=== PATIENT | male | born 1990 ===

== ENCOUNTER 2020-03-19 05:24 | Day surgery (SDC) | payer OTHER ==
[~2020-03-19 05:24] MED LIST: CEFAZOLIN 1 GM/D5W RTU 1 GM/50 ML RTUPB IV ONE; CEFAZOLIN 2 GM/D5W RTU 2 GM/50 ML RTUPB IV PRN; RINGERS SOLUTION,LACTATED 1,000 ML IV PRN
[2020-03-19] MEDS ORDERED: EPHEDRINE SULFATE INJ 50 MG/1 ML AMPULE ONE (06:44)
[2020-03-19] MEDS ORDERED: FENTANYL CITRATE INJ/PF 100 MCG/2 ML AMPUL ONE ×2 (06:44→09:43)
[2020-03-19] MEDS ORDERED: MIDAZOLAM 2 MG/2 ML INJ ONE (06:44)
[2020-03-19] MEDS ORDERED: PROPOFOL INJ 200 MG/20 ML VIAL IV ONE (06:45)
[2020-03-19] MEDS ORDERED: ROPIVACAINE HCL 0.5% INJ/PF (5 MG/1 ML) 30 ML SDV ONE (06:56)
--- NOTE | 2020-03-19 09:30 | Operative Report ---
Operative Report DATE OF SURGERY: 03/19/20 Operative Report: The patient was met in the preoperative holding area where the left upper extremity was marked. He was taken to the operative suite after a left upper extremity nerve block for postoperative pain was placed. The patient was placed supine on the operative table and anesthesia and preoperative antibiotics were administered. Left upper extremity was evaluated under anesthesia for signs of instability, there was anterior instability on exam. The patient was then positioned on the pegboard in the right lateral decubitus position taking care to pad all bony prominences. The left upper extremity was then prepped and draped in the usual sterile fashion and placed in a traction apparatus. The bony landmarks were palpated and marked on the skin. A surgical timeout was performed with the entire team. A standard posterior arthroscopy portal was created and the camera was inserted into the glenohumeral joint. Under needle localization at the rotator interval a portal was created just above the subscapularis tendon. A diagnostic arthroscopy was performed. The rotator cuff tendons were intact. The humeral head and glenoid cartilage was intact and without pathology. The superior labrum and biceps tendon were noted to have a type II SLAP tear with bicipital tendinitis noted. Using the arthroscopic scissors the biceps tendon was cut at its base and using the arthroscopic shaver and cautery the superior portion of the labrum was carefully debrided. Final pictures were taken. Next, the anterior portion of the labrum was found to be detached from the glenoid in the 3:00 to 5 o'clock position. Pictures were taken. The posterior labrum was found to be normal. Using a percutaneous kit for the Arthrex suture tack a long spinal needle was placed to the anterior portal adjacent to the anterior cannula. A nitinol wire was then placed down through the spinal needle and cannulated switching stick was placed down over the nitinol wire. Next a drill guide was placed over the cannulated switching stick and the cannulated switching stick was removed. The drill guide was placed in the 3:30 position and carefully drilled. A 3.5 mm Arthrex sutureTak was placed. Next using the lasso the wire was shuttled through the labral tissue and then using this wire the FiberWire suture was shuttled through the labrum. The FiberWire was loaded into the looped suture and pulled through the anchor and carefully tensioned under direct visualization. Taking care not to over tighten the labrum and to recreate the bumper I placed the drill guide directly on the 5 o'clock position, I then drilled a hole for another 3.5 mm sutureTak to act as a ripstop. Once the anchor was placed and then using the lasso shuttled the wire through the labral tissue and using the same technique as the previous anchor cinched down the labral tissue to the glenoid taking care not to over tension. Next, using the probe I confirmed adequate positioning of the anchors and stability of the repair. Final pictures were taken. Next, I turned my attention to the anterior aspect of the humerus where a 3 cm incision was made just under the inferior border of the pectoralis major. Using blunt dissection down to the anterior aspect of the humerus the long head of the biceps tendon was found and carefully removed. An Allis clamp was placed and using a whipstitch technique at the musculotendinous junction I placed 5 suture passes through the tendon measuring approximately 2 cm locking the final suture passed. The remaining portion of the biceps tendon was cut. I then loaded the sutures into the Arthrex unicortical button using a free needle one of the suture tails was then passed through the sutured portion of the biceps tendon. A snap was placed on the sutures and they were set aside. Next a Hohmann was placed under the deltoid and an [place] was used inferiorly. Using a curette the bone was curetted down in the bicipital groove to create a nice bleeding surface for the biceps tendon. Using a drill a hole was drilled at the most proximal aspect of the bicipital groove. The drill bit was removed and the button was placed and flipped. The biceps tendon was then tensioned and prior to tying confirmed appropriate tensioning. The sutures were then tied and cut. The wound was copiously irrigated. Using a 2-0 Monocryl the anterior deep tissue was closed. And the subcutaneous tissue was closed using a running 3-0 Monocryl. The portal sites were closed using a 3-0 Monocryl. Steri-Strips were applied and a sterile dressing was applied of 4 x 4's and Tegaderm. There were no complications during the procedure. There were some technical difficulties and a few pictures were not saved. In particular the final anchor placement after suture tails were cut and the rotator cuff pictures. The patient tolerated the procedure well. He was taken to the PACU in stable condition. Postop: 1) patient will follow up in 10 to 14 days for his first postop visit. 2) he is to begin physical therapy within 3 to 5 days of surgery for a [place] protocol for anterior labral repair and open subpectoral biceps tenodesis. PREOPERATIVE DIAGNOSIS: Left shoulder labral tear, SLAP, biceps tendonitis POSTOPERATIVE DIAGNOSIS: left shoulder 3-5 anterior labral tear with type 2 SLAP tear and biceps tendinitis OPERATION: Left shoulder arthroscopy with SLAP debridement, anterior labral repair and open subpectoral biceps tenodesis SURGEON: MONICA REYES ANESTHESIA: GA ESTIMATED BLOOD LOSS: 10 cc INTRAOPERATIVE FINDINGS: Please see dictation
--- NOTE | 2020-03-19 09:35 | Discharge Summary ---
Discharge Summary (SDC) - Discharge Final Diagnosis: Left shoulder anterior labral tear, SLAP tear and biceps tendinitis Date of Surgery: 03/19/20 Discharge Date: 03/19/20 Condition: Good Forms: ASU Anesthesia D/C Instruction, Discharge POC-Surgical Service Treatment or Instructions: Please see postoperative discharge instructions for a complete list. These were provided in the office Take pain medications as prescribed Maintain your sling at all times except doing pendulum exercises (3-5 times a day, for 30-50 revolutions) and except while doing physical therapy You may shower on postop day 3. You may take your dressing down but leave your Steri-Strips in place. Do not scrub your wounds while showering and do not submerge your wounds underwater. Referrals: MONICA REYES, [ACTIVE STAFF] - (PLEASE KEEP YOUR FOLLOW-UP APPOINTMENT. CARE YOUR SURGEON WITH QUESTIONS.) Discharge Diet: As Tolerated Respiratory Treatments at Home: Deep Breathing/Coughing Discharge Activity: Other - Please see postoperative instructions given to the patient in the office. Pendulum exercises 3-5 times a day until you begin physical therapy. Home Care Assistance: Provided by Family Report the Following to Your Physician Immediately: Shortness of Breath, Nausea, Vomiting, Increase in Pain, Fever over 101 Degrees, Drainage-Yellow, Drainage- Foul Smelling
[2020-03-19] MEDS ORDERED: DIPHENHYDRAMINE HCL 50 MG/ML VIAL IV PRN (09:38)
[2020-03-19] MEDS ORDERED: PROMETHAZINE HCL INJ 25 MG/1 ML VIAL IV PRN ×2 (09:38)
[2020-03-19] MEDS ORDERED: MEPERIDINE HCL/PF INJ 25 MG/1 ML DISP.SYRIN IV PRN (09:38)
[2020-03-19] MEDS ORDERED: ONDANSETRON HCL INJ/PF 4 MG/2 ML SDV IV PRN (09:38)
[2020-03-19] MEDS ORDERED: ONDANSETRON HCL INJ/PF 4 MG/2 ML SDV ONE ×2 (09:38→10:59)
[2020-03-19] MEDS ORDERED: FENTANYL CITRATE INJ/PF 100 MCG/2 ML AMPUL IV PRN ×2 (09:38)
[2020-03-19] MEDS ORDERED: HYDROMORPHONE HCL INJ/PF 2 MG/ML AMPULE IV PRN (09:39)
[2020-03-19] MEDS ORDERED: ACETAMINOPHEN 1,000 MG/100 ML RTUPB IV ONE (09:47)
[2020-03-19] MEDS: HYDROMORPHONE HCL INJ/PF 2 MG/ML AMPULE ONE ×2 (09:48→09:58)
[2020-03-19] MEDS ORDERED: OXYCODONE HCL IR 5 MG TABLET ONE (10:39)
[2020-03-19] MEDS ORDERED: ROCURONIUM BROMIDE INJ 50 MG/5 ML VIAL IV ONE (10:59)
[2020-03-19] MEDS ORDERED: PHENYLEPHRINE HCL INJ/PF 10 MG/1 ML SDV ONE (10:59)
[2020-03-19] MEDS ORDERED: DEXAMETHASONE SOD PHOSPHATE INJ 4 MG/1 ML VIAL ONE (10:59)
[2020-03-19] MEDS ORDERED: LIDOCAINE 2% INJ-PF (20 MG/ML) 2 ML AMPUL ONE (10:59)
[2020-03-19] MEDS ORDERED: GLYCOPYRROLATE 1 MG/5 ML VIAL ONE (10:59)
[2020-03-19] MEDS ORDERED: KETOROLAC TROMETHAMINE 60 MG/2 ML SDV ONE (10:59)
[2020-03-19] MEDS ORDERED: NEOSTIGMINE METHYLSULFATE 10 MG/10 ML VIAL ONE (10:59)
[2020-03-19 13:52] VITALS: BP 115/71
== END 2020-03-19 12:30 | disposition home or self-care (01) ==
LOC: OROUT 05:24
PROVIDERS: ATTEND Orthopaedic Surgery
DX: S43.432A Superior glenoid labrum lesion of left shoulder, initial encounter (principal); X58.XXXA Exposure to other specified factors, initial encounter; Y93.B2 Activity, push-ups, pull-ups, sit-ups; M75.22 Bicipital tendinitis, left shoulder; Z03.818 Encounter for observation for suspected exposure to other biological agents ruled out
CPT/HCPCS: 87635; 64415; 76942; 01716; 29807; 23430; L3650; C1713 ×2; A4649; J2795; J2250; J0690; J3490 ×3; J1100; J1885; J3010; J2710; J1170; J2370; J2405; J2704; J0131; C9803; 1716